=== PATIENT | male | born 1985 | race Caucasian/White ===

== ENCOUNTER 2016-10-01 17:31 | Emergency (ER) | payer OTHER ==
[~2016-10-01] VITALS: Ht 172.7 cm; Wt 113.4 kg
[2016-10-01 20:30] VITALS: BP 120/77
== END 2016-10-01 20:30 | disposition home or self-care (01) ==
LOC: ED 17:31
DX: S61.012A Laceration without foreign body of left thumb without damage to nail, initial encounter (principal); X58.XXXA Exposure to other specified factors, initial encounter; Y93.89 Activity, other specified; Y92.89 Other specified places as the place of occurrence of the external cause; Y99.8 Other external cause status

== ENCOUNTER 2020-02-10 00:20 | Emergency (ER) | payer SELFPAY ==
[~2020-02-10] VITALS: Ht 175.3 cm; Wt 119.0 kg
[2020-02-10 00:49] VITALS: BP 126/69
== END 2020-02-10 03:40 | disposition home or self-care (01) ==
LOC: ED 00:20
DX: R10.32 Left lower quadrant pain (principal); N50.812 Left testicular pain